=== PATIENT | female | born 1955 | race American Indian/Alaskan Native ===

== ENCOUNTER 2017-06-11 11:05 | Day surgery (SDC) | payer OTHER ==
[2017-06-11] MEDS: NACL 0.9% 1000 ML 1,000 ML IV SCH ×2 (12:20→15:09)
--- NOTE | 2017-06-11 13:22 | Anesthesia Consultation ---
Anesthesia Consult and Med Hx Date of service: 06/11/17 - Airway Anesthetic Teeth Evaluation: Poor (missing left lower) ROM Head & Neck: Adequate Mental/Hyoid Distance: Adequate Mallampati Class: Class I Intubation Access Assessment: Good - Pulmonary Exam CTA: Yes - Cardiac Exam Cardiac Exam: RRR - Pre-Operative Health Status ASA Pre-Surgery Classification: ASA2 Proposed Anesthetic Plan: MAC - Cardiovascular System Hx Hypertension: Yes
--- NOTE | 2017-06-11 13:22 | Anesthesia Day of Surgery ---
Anesthesia Day of Surgery - Day of Surgery Patient Examined: Yes Patient H&P Reviewed: Yes Patient is NPO: Yes
[2017-06-11] MEDS ORDERED: XYLOCAINE 1% 20 mL ONE (15:02)
[2017-06-11] MEDS ORDERED: DIPRIVAN 10 MG/ML IV ONE ×2 (15:02)
--- NOTE | 2017-06-11 15:27 | Operative Report ---
Operative Report Operative Report: Date of procedure: 06/11/2017 Procedure: Colonoscopy with Hot biopsy polypectomy. Attending physician: Yevgeniy Walters MD Sheltered Workshop Worker: Yevgeniy Walters MD Indication: Patient is a 61-year-old female who presents for screening colonoscopy. A colonoscopy serves to evaluate patient for colorectal cancer screening.. Consent: Informed consent was obtained after advising the patient and family regarding nature of this procedure, its indications, potential benefits as well as possible complications including but not limited to bleeding perforation and adverse reaction to medication, infection as well as other cardiopulmonary complications. An informed written and verbal consent was then obtained after due opportunity was provided for questions and answers. Monitoring: Patient was monitored continuously with pulse oximetry and electrocardiographic recordings as well as blood pressure recordings. Vital signs remained stable throughout this procedure with no untoward events. Preoperative assessment: Patient was assessed immediately prior to this procedure for capacity to tolerate monitored anesthesia care and moderate sedation as well as general anesthesia. Patient's ASA classification is 2, Mallampati class is 2, Hyomental distance is 3. Instrument: Signpath Pharman video colonoscope Medications: Propofol given intravenously in divided doses. For details please refer to anesthesia records. Description of procedure: Patient was placed in the left lateral decubitus position after achieving sedation, a digital rectal examination was performed following which the colonoscope was introduced into the anal verge and advanced to the cecum which was identified by the ileocecal valve, the appendiceal orifice, as well as by the cecal strap and direct transillumination. The colonoscope was subsequently withdrawn with careful inspection of all mucosal surfaces. Patient tolerated this procedure well and was subsequently taken to the recovery room. The following findings were noted. Findings: Patient had a diminutive flat polyp in the rectum, which was removed by hot biopsy polypectomy. There were a few diverticula seen in the sigmoid and descending colon. On the retroflex view at the anal verge, patient had internal hemorrhoids. Impression: Diminutive rectal polyp status post hot biopsy polypectomy Mild diverticulosis Internal hemorrhoids. Plan: Follow pathology report. Repeat colonoscopy in 5 years. Encourage high-fiber diet.
--- NOTE | 2017-06-11 15:28 | Discharge Summary ---
Short Stay Discharge Plan Activity: advance as tolerated Weight Bearing Status: Weight Bear as Tolerated Diet: regular Follow up with: KENTRELL ROQUE MD [Primary Care Provider] - 7 Days
[2017-06-11] MEDS ORDERED: ALUM-MAG HYDROX-SIMETH 200-200-20MG/5ML PO STA (16:47)
[2017-06-11 16:54] VITALS: BP 144/77
== END 2017-06-11 11:06 | disposition home or self-care (01) ==
LOC: GIO 11:05
PROVIDERS: ATTEND Internal Medicine Gastroenterology
DX: K62.5 Hemorrhage of anus and rectum (principal); K63.5 Polyp of colon; K64.8 Other hemorrhoids; K57.30 Diverticulosis of large intestine without perforation or abscess without bleeding; K59.00 Constipation, unspecified; I10 Essential (primary) hypertension; Z88.8 Allergy status to other drugs, medicaments and biological substances; Z86.010 Personal history of colon polyps
CPT/HCPCS: 45384; 88305; J2704; J7030

== ENCOUNTER 2021-05-19 09:47 | Emergency (ER) | payer MEDICARE, OTHER ==
[2021-05-19] MEDS ORDERED: ONDANSETRON 4 MG/2 ML INJ IV ONE (11:44)
[2021-05-19] MEDS ORDERED: KETOROLAC 30 MG/1 ML INJ IV ONE (11:44)
[2021-05-19] MEDS ORDERED: oxyCODONE /ACETAMINOPHEN 5-325MG TAB PO ONE (11:44)
--- NOTE | 2021-05-19 11:53 | Emergency Department Report ---
ED Fever HPI - General Chief Complaint: Medical Clearance Stated Complaint: FEVER/RT BREAST PAIN PUI?: No Time Seen by Provider: 05/19/21 11:36 Source: patient Exam Limitations: no limitations - History of Present Illness Initial Comments: Chief complaint "I am in pain." HPI: This is a 65-year-old female with history of hypertension who presents with 9 days of mouth pain, right-sided chest pain, left flank pain fever. Recently evaluated by PCP at [facility], [place]. Had recent COVID and flu test negative. Patient has had intermittent fever and chills for the last 9 days. She denies cough or chest pain. She has right-sided achy chest pain. She has severe left flank pain. She denies dysuria or hematuria. Denies history of kidney stones. Timing/Duration: other (9 days) Fever Severity/Quality: subjective Associated Symptoms: chest pain, other (Back pain) ED Review of Systems ROS: Stated complaint: FEVER/RT BREAST PAIN Other details as noted in HPI Comment: All other systems reviewed and negative Constitutional: chills, fever Eyes: eye discharge Respiratory: denies: cough, shortness of breath Cardiovascular: chest pain Musculoskeletal: back pain ED Past Medical Hx - Past Medical History Previous Medical History?: Yes Hx Hypertension: Yes - Surgical History Past Surgical History?: No - Social History Smoking Status: Never Smoker Substance Use Type: None - Medications Home Medications: Home Medications Medication Instructions Recorded Confirmed Last Taken Type Irbesartan-Hctz 150-12.5 mg Tb 06/11/17 06/10/17 History Azithromycin [Zithromax Z-CRYSTAL] 250 mg PO DAILY 5 Days #6 05/19/21 Unknown Rx ED Physical Exam - General Limitations: No Limitations General appearance: alert, in no apparent distress, other (Appears in severe pa in holding left back) - Head Head exam: Present: atraumatic, normocephalic - Eye Eye exam: Present: normal appearance - ENT ENT exam: Present: mucous membranes moist - Neck Neck exam: Present: normal inspection, full ROM - Respiratory Respiratory exam: Present: normal lung sounds bilaterally. Absent: respiratory distress, wheezes, rales, rhonchi - Cardiovascular Cardiovascular Exam: Present: regular rate, normal rhythm, normal heart sounds. Absent: systolic murmur, diastolic murmur, rubs, gallop - GI/Abdominal GI/Abdominal exam: Present: soft, normal bowel sounds. Absent: distended, tenderness, guarding, rebound - Extremities Exam Extremities exam: Present: normal inspection - Back Exam Back exam: Present: tenderness, CVA tenderness (R), CVA tenderness (L), other (Bilateral flank tenderness exquisitely tender especially left flank) - Neurological Exam Neurological exam: Present: alert, oriented X3 - Psychiatric Psychiatric exam: Present: normal affect, normal mood - Skin Skin exam: Present: warm, dry, intact, normal color. Absent: rash ED Course Vital Signs 05/19/21 09:58 Temperature 98.3 F Pulse Rate 77 Respiratory 16 Rate Blood Pressure 109/64 [Right] O2 Sat by Pulse 97 Oximetry ED Medical Decision Making - Lab Data Result diagrams: 05/19/21 11:49 05/19/21 11:49 Laboratory Results - last 24 hr 05/19/21 05/19/21 11:49 11:49 WBC 6.8 RBC 4.92 Hgb 13.1 Hct 42.3 MCV 86 MCH 27 L MCHC 31 RDW 13.7 Plt Count 306 Lymph % (Auto) 31.5 Ferry % (Auto) 13.3 H Eos % (Auto) 1.6 Baso % (Auto) 1.2 Lymph # (Auto) 2.1 Ferry # (Auto) 0.9 H Eos # (Auto) 0.1 Baso # (Auto) 0.1 Seg Neutrophils % 52.4 Seg Neutrophils # 3.5 Sodium 140 Potassium 4.5 Chloride 103.6 Carbon Dioxide 25 Anion Gap 16 BUN 14 Creatinine 1.1 Estimated GFR > 60 BUN/Creatinine Ratio 13 Glucose 113 H Calcium 9.8 Total Bilirubin 0.50 AST 23 ALT 19 Alkaline Phosphatase 73 Total Protein 7.4 Albumin 3.6 L Albumin/Globulin Ratio 0.9 Lipase 42 - Radiology Data Radiology results: report reviewed [facility] [address] [place] [address] Cat Scan Report Signed Patient: SUSAN VALVERDE MR#: [id number] : 1955 Acct:[id number] Age/Sex: 65 / F ADM Date: 05/19/21 Loc: ED Attending Dr: Ordering Physician: Heike Richter MD Date of Service: 05/19/21 Procedure(s): CT angio chest Accession Number(s): [id number] cc: Heike Richter MD CTA CHEST CT ABDOMEN AND PELVIS WITHOUT CONTRAST INDICATION: Syncope, shortness of breath, left flank pain. TECHNIQUE: Axial CT images were obtained through the chest after 85 cc Omnipaque [address] imaging was performed through the abdomen and pelvis. 3 plane MIP reformats of the chest were produced. All CT scans at this location are performed using CT dose reduction for ALARA by means of automated exposure control. COMPARISON: None available. FINDINGS: HEART: No significant abnormality. THORACIC VASCULATURE: No pulmonary emboli are identified. No acute vascular findings. No significant atherosclerosis. LYMPH NODES: No significant adenopathy. TRACHEA AND BRONCHI:No significant abnormality. LUNGS: Multifocal bilateral ground glass opacities are noted without a pneumothorax, pleural effusion or other significant abnormality. LIVER: No significant abnormality. GALLBLADDER: No significant abnormality. BILE DUCTS: No significant abnormality. PANCREAS: No significant abnormality. SPLEEN: No significant abnormality. ADRENALS: No significant abnormality. RIGHT KIDNEY/URETER: No significant abnormality. LEFT KIDNEY/URETER: No significant abnormality. STOMACH/SMALL BOWEL: No significant abnormality. COLON: No significant abnormality. APPENDIX: No significant abnormality. PERITONEUM: No free fluid. No free air. No fluid collection. LYMPH NODES: No significant adenopathy. ABDOMINOPELVIC VASCULATURE: No significant abnormality. URINARY BLADDER: No significant abnormality. REPRODUCTIVE ORGANS: No significant abnormality. ADDITIONAL FINDINGS: None. BONES: No significant abnormality IMPRESSION: 1. Multifocal bilateral pneumonia, possibly of viral etiology. Please correlate with the clinical findings. 2. No CT evidence of pulmonary emboli. 3. No acute findings to explain the patient's left flank pain. Signer Name: Jaylen Rider MD Signed: 05/19/2021 2:04 PM Workstation Name: [id number] Transcribed By: JESSICA Dictated By: Jaylen Rider MD Electronically Authenticated By: Jaylen Rider MD Signed Date/Time: 05/19/21 1409 DD/ 1356 TD/TT: - Medical Decision Making 1. CT angiogram revealed findings of viral pneumonia, patient was given a diagnosis of COVID 19 pneumonia. Prescribed azithromycin. Oxygen saturation 97%. Patient ambulates without respiratory effort or distress. She understands to isolate for the next 5 days. I recommended COVID-vaccine. 2. Patient has dental pain: I recommended dental evaluation. Critical care attestation.: If time is entered above; I have spent that time in minutes in the direct care of this critically ill patient, excluding procedure time. ED Disposition Clinical Impression: Pneumonia due to COVID-19 virus Disposition: HOME / SELF CARE / HOMELESS Is pt being admited?: No Does the pt Need Aspirin: No Condition: Stable Instructions: COVID-19 Frequently Asked Questions, Bacterial Pneumonia (ED) Prescriptions: Azithromycin [Zithromax Z-CRYSTAL] 250 mg PO DAILY 5 Days #6 Referrals: PRIMARY CARE,MD [Primary Care Provider] - 3-5 Days
[2021-05-19 12:19] LABS: Basophils # (Auto) 0.1 K/mm3 (0.0-0.1); Basophils % (Auto) 1.2 % (0.0-1.8); Eosinophils # (Auto) 0.1 K/mm3 (0.0-0.4); Eosinophils % (Auto) 1.6 % (0.0-4.3); Hematocrit 42.3 % (30.3-42.9); Hemoglobin 13.1 gm/dl (10.1-14.3); Lymphocytes # (Auto) 2.1 K/mm3 (1.2-5.4); Lymphocytes % (Auto) 31.5 % (13.4-35.0); Mean Corpuscular HGB Conc 31 % (30-34); Mean Corpuscular Volume 86 fl (79-97); Monocytes # (Auto) 0.9 K/mm3 (0.0-0.8); Monocytes % (Auto) 13.3 % (0.0-7.3); Platelet Count 306 K/mm3 (140-440); Red Blood Count 4.92 M/mm3 (3.65-5.03); Red Cell Distribution Width 13.7 % (13.2-15.2)
[2021-05-19 12:46] LABS: Alanine Aminotransferase 19 units/L (7-56); Albumin 3.6 g/dL (3.9-5); BUN/Creatinine Ratio 13; Blood Urea Nitrogen 14 mg/dL (7-17); Calcium 9.8 mg/dL (8.4-10.2); Hemolysis Index 2
--- NOTE | 2021-05-19 14:09 | Cat Scan Report ---
CTA CHEST CT ABDOMEN AND PELVIS WITHOUT CONTRAST INDICATION: Syncope, shortness of breath, left flank pain. TECHNIQUE: Axial CT images were obtained through the chest after 85 cc Omnipaque [address]. [address] imaging was performed through the abdomen and pelvis. 3 plane MIP reformats of the chest were produc ed. All CT scans at this location are performed using CT dose reduction for ALARA by means of automat ed exposure control. COMPARISON: None available. FINDINGS: HEART: No significant abnormality. THORACIC VASCULATURE: No pulmonary emboli are identified. No acute vascular findings. No significant atherosclerosis. LYMPH NODES: No significant adenopathy. TRACHEA AND BRONCHI:No significant abnormality. LUNGS: Multifocal bilateral ground glass opacities are noted without a pneumothorax, pleural effusion or other significant abnormality. LIVER: No significant abnormality. GALLBLADDER: No significant abnormality. BILE DUCTS: No significant abnormality. PANCREAS: No significant abnormality. SPLEEN: No significant abnormality. ADRENALS: No significant abnormality. RIGHT KIDNEY/URETER: No significant abnormality. LEFT KIDNEY/URETER: No significant abnormality. STOMACH/SMALL BOWEL: No significant abnormality. COLON: No significant abnormality. APPENDIX: No significant abnormality. PERITONEUM: No free fluid. No free air. No fluid collection. LYMPH NODES: No significant adenopathy. ABDOMINOPELVIC VASCULATURE: No significant abnormality. URINARY BLADDER: No significant abnormality. REPRODUCTIVE ORGANS: No significant abnormality. ADDITIONAL FINDINGS: None. BONES: No significant abnormality IMPRESSION: 1. Multifocal bilateral pneumonia, possibly of viral etiology. Please correlate with the clinical fin dings. 2. No CT evidence of pulmonary emboli. 3. No acute findings to explain the patient's left flank pain. Signer Name: Jaylen Rider MD Signed: 05/19/2021 2:04 PM Workstation Name: [id number]
[2021-05-19 15:09] VITALS: BP 115/74
--- NOTE | 2021-05-23 13:27 | Electrocardiograph Report ---
[facility] Test Date: 2021-05-19 Test Time: 11:15:18 Pat Name: SUSAN VALVERDE Department: Room: Gender: F [employer]: SAMANTHA : 1955 Requested By: JOSE COLE Order Number: [id number] Reading MD: Elizabeth Bhat Measurements Intervals [place] Rate: 67 P: 66 [place]: 148 QRS: 16 QRSD: 85 T: 11 QT: 407 QTc: 429 Interpretive Statements Sinus rhythm No previous ECG available for comparison Electronically Signed On 05-23-2021 13:27:11 EST by Elizabeth Bhat
== END 2021-05-19 15:09 | disposition home or self-care (01) ==
LOC: ED 09:47
DX: U07.1 COVID-19 (principal); J12.82 Pneumonia due to coronavirus disease 2019
CPT/HCPCS: 36415; 71275; 74176; 80053; 83690; 85025; 93005; 93010; 96374; 96375; 99283; J1885; J2405; Q9967